=== PATIENT | female | born 2000 | race Two or more races ===

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

== ENCOUNTER 2021-05-19 14:48 | Emergency (ER) | payer OTHER | END 2021-05-19 15:17 | disposition home or self-care (01) | LOC: MADERS 14:48 | DX: H65.92 Unspecified nonsuppurative otitis media, left ear (principal) | CPT/HCPCS: 99282 ==

== ENCOUNTER 2022-07-28 20:46 | Emergency (ER) | payer OTHER, SELFPAY ==
[2022-07-28] MEDS ORDERED: Orphenadrine Citrate 60 MG/2 ML VIAL ONE (21:49)
== END 2022-07-28 22:09 | disposition home or self-care (01) ==
LOC: MADERS 20:46
DX: M62.838 Other muscle spasm (principal); I10 Essential (primary) hypertension; E78.00 Pure hypercholesterolemia, unspecified; E11.9 Type 2 diabetes mellitus without complications
CPT/HCPCS: 36416; 93005; 96372; J2360

== ENCOUNTER 2022-11-13 18:25 | Emergency (ER) | payer MEDICAID, OTHER ==
[2022-11-13] MEDS ORDERED: diphenhydrAMINE 25 MG CAP ONE (19:02)
== END 2022-11-13 19:07 | disposition home or self-care (01) ==
LOC: MADERS 18:25
DX: H10.12 Acute atopic conjunctivitis, left eye (principal)
CPT/HCPCS: 99283

== ENCOUNTER 2023-02-07 23:39 | Emergency (ER) | payer MEDICAID, OTHER ==
[2023-02-08 00:34] LABS: Bilirubin Moderate (Negative); Blood, Urine Negative (Negative); Clarity Clear (Clear); Glucose, Urine (Dipstick) Negative (Negative); Ketone, Urine 80 mg/dL (Negative); Leukocyte Negative (Negative); Nitrite Negative (Negative); Protein, Urine (Dipstick) 30 mg/dL (Neg-Trace); Urobilinogen 0.2 mg/dL (Less than 2); pH, Urine 5.5 (5.0-9.0)
[2023-02-08 00:35] LABS: Specific Gravity, Urine 1.024 (1.002-1.036)
[2023-02-08 00:39] LABS: Bacteria/HPF 2+ HPF (None Seen); RBC/HPF 0-3 HPF (0-3)
[2023-02-08] MEDS ORDERED: Sodium Chloride 0.9% 1,000 ML ONE (00:40)
[2023-02-08] MEDS ORDERED: Ondansetron ODT 4 MG TAB ONE (00:40)
[2023-02-08 01:22] LABS: #Basophils 0.1 thou/uL (0.0-0.2); #Lymphocytes 0.7 thou/uL (1.20-3.40); #Monocytes 0.6 thou/uL (0.11-0.59); #Neutrophils 5.1 thou/uL (1.40-6.50); %Basophils 1.1 % (0.0-1.0); %Eosinophils 0.4 % (0.0-10.0); %Monocytes 9.1 % (0.0-10.0); %Neutrophils 78.4 % (42.0-75.0); Hemoglobin 12.7 g/dL (12.0-16.0); Mean Corpuscular HGB CONC 32.3 g/dL (32.0-36.0); Mean Corpuscular Hemoglobin 27.6 pg (27.0-31.0); Mean Corpuscular Volume 85.6 fl (78.0-98.0); Mean Platelet Volume 9.6 fL (7.4-10.4); Platelet Count 302 10x3/uL (130-400); RBC Distribution Width 12.8 % (11.5-14.5); Red Blood Cell (RBC) Count 4.61 mill/uL (4.20-5.40); White Blood Cell (WBC) Count 6.4 10x3/uL (4.8-10.8)
[2023-02-08 01:37] LABS: Anion Gap 14 mmol/L (10-20); BUN (Urea Nitrogen) 5 mg/dL (7.0-18.7); Calc. Creatinine Clearance 0 mL/min (70-130); Calcium 9.2 mg/dL (7.8-10.44); Carbon Dioxide 21 mmol/L (22-29); Chloride 104 mmol/L (98-107); Estimated GFR 120; Glucose 104 mg/dL (70-105); Potassium 3.5 mmol/L (3.5-5.1); Sodium 135 mmol/L (136-145)
== END 2023-02-08 02:21 | disposition home or self-care (01) ==
LOC: MADERS 23:39
DX: A08.4 Viral intestinal infection, unspecified (principal); E66.9 Obesity, unspecified
CPT/HCPCS: 80048; 81003; 81015; 85025; 96360; J7050; Q0162

== ENCOUNTER 2023-03-08 17:13 | Emergency (ER) | payer MEDICAID, OTHER | END 2023-03-08 18:45 | disposition home or self-care (01) | LOC: MADERS 17:13 | DX: O99.891 Other specified diseases and conditions complicating pregnancy (principal); R55 Syncope and collapse; Z3A.18 18 weeks gestation of pregnancy; E66.9 Obesity, unspecified | CPT/HCPCS: 36416; 99284 ==